=== PATIENT | female | born 1955 | race Caucasian/White ===

== ENCOUNTER 2020-05-12 19:11 | Emergency (ER) | payer MEDICARE, OTHER ==
[~2020-05-12] VITALS: Ht 162.6 cm; Wt 65.8 kg
[~2020-05-12 19:11] MED LIST: ATENOLOL50 MG PO; LISINOPRIL10 MG PO; NEURONTIN300 MG PO
--- NOTE | 2020-05-12 19:59 | Emergency Department Note ---
History of Present Illnes History of Present Illness Chief Complaint: Extremity Trauma/Pain History of Present Illness This is a 65 year old female AAOX3 PRESENTS TO THE ER C/O BRUISING TO RT HAND; PT STATES BRUISING APPEARED TODAY; PT DENIES ANY RECENT TRAUMA; PT STATES SHE HAD SINUS SX ON SUNDAY ANS REPORTS IV CATH WAS IN RT HAND; PT DENIES TAKING BLOOD THINNERS;. Historian: Patient Arrival Mode: Car Onset (how long ago): hour(s) (4) Location: RIGHT HAND Quality: BRUISING Radiation: Reports non-radiation Severity: mild Onset quality: sudden Progression: unchanged Chronicity: new Context: Denies recent illness, Denies recent surgery, Denies trauma/injury Relieving factors: none Exacerbating factors: none Associated symptoms: Reports denies other symptoms Past Medical/Family History Physician Review I have reviewed the patient's past medical and family history. Any updates have been documented here. 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 Past Surgical History: Cholecysctectomy, Hysterectomy, Back Surgery Other Surgery: SINUS SX ENDARCTECTOMY Social History Smoking Cessation: Current every day smoker Alcohol Use: None Any Illegal Drug Use: No TB Exposure/Symptoms: No Physically hurt or threatened: No Family History Family history of heart diseas: No Other family history HTN Other Last Tetanus: UTD Any Pre-Existing Lines (PICC,: No Is patient up to date on immun: Yes Last Flu: UTD Last Pneumovax: UTD Review of Systems Review of Systems Constitutional: Reports no symptoms EENTM: Reports no symptoms Cardiovascular: Reports no symptoms Respiratory: Reports no symptoms Gastrointestinal: Reports no symptoms Genitourinary: Reports no symptoms Musculoskeletal: Reports as per HPI Integumentary: Reports no symptoms Neurological: Reports no symptoms Psychological: Reports no symptoms Endocrine: Reports no symptoms Hematological/Lymphatic: Reports no symptoms Physical Exam Related Data Allergies: Coded Allergies: Iodinated Contrast Media (Verified Allergy, Unknown, 05/12/20) PER GUERILLERMO ON 01/06/16 AT 9:35AM. aspirin (Verified Allergy, Unknown, 05/12/20) PER GUERILLERMO ON 01/06/16 AT 9:35AM. cephalexin (Verified Allergy, Unknown, 05/12/20) PER GUERILLERMO ON 01/06/16 AT 9:35AM. iodine (Verified Allergy, Unknown, 05/12/20) PER GUERILLERMO ON 01/06/16 AT 9:35AM. penicillin (Verified Allergy, Unknown, 05/12/20) PER GUERILLEMO ON 01/06/16 AT 9:35AM Triage Vital Signs Vital Signs Date Time Temp Pulse Resp B/P (MAP) Pulse Ox O2 Delivery O2 Flow Rate FiO2 05/12/20 19:38 98.4 85 18 163/82 96 Vital signs reviewed: Yes Physical Exam CONSTITUTIONAL Constitutional: Present well-developed, Present well-nourished HENT HENT: Present normocephalic, Present atraumatic, Present oropharynx clear/moist, Present nose normal HENT L/R: Present left ext ear normal, Present right ext ear normal EYES Eyes: Reports PERRL, Reports conjunctivae normal NECK Neck: Present ROM normal PULMONARY Pulmonary: Present effort normal, Present breath sounds normal CARDIOVASCULAR Cardiovascular: Present regular rhythm, Present heart sounds normal, Present capillary refill normal, Present normal rate GASTROINTESTINAL Abdominal: Present soft, Present nontender, Present bowel sounds normal GENITOURINARY Genitourinary: Present exam deferred SKIN Skin: Present warm, Present dry MUSCULOSKELETAL Musculoskeletal: Present ROM normal, Present other (BRUISING TO DORSUM OF RIGHT HAND) NEUROLOGICAL Neurological: Present alert, Present oriented x 3, Present no gross motor or se nsory deficits PSYCHOLOGICAL Psychological: Present mood/affect normal, Present judgement normal Assessment & Plan Medical Decision Making MDM PT WITH BRUISE TO RIGHT HAND, PT HAD FULL RANGE OF MOTION, N/V INTACT Assessment & Plan Final Impression: (1) Contusion of right hand Depart Disposition: HOME, SELF-CARE Last Vital Signs Date Time Temp Pulse Resp B/P (MAP) Pulse Ox O2 Delivery O2 Flow Rate FiO2 05/12/20 19:38 98.4 85 18 163/82 96 Home Meds Reported Medications Lisinopril (LISINOPRIL) 10 Mg Tablet, 20 MG PO DAILY, #30 TAB 01/05/16 Gabapentin (NEURONTIN) 300 Mg Capsule, 300 MG PO TID 01/05/16 Atenolol (ATENOLOL) 50 Mg Tablet, 100 MG PO DAILY 01/05/16 BENIGNO ESCOBAR MD May 12, 2020 19:59
== END 2020-05-12 20:06 | disposition home or self-care (01) ==
LOC: ER 19:11
DX: S60.221A Contusion of right hand, initial encounter (principal); I10 Essential (primary) hypertension
CPT/HCPCS: 99282